=== PATIENT | male | born 1940 | race Caucasian/White ===

== ENCOUNTER 2017-09-15 23:06 | Emergency (ER) | payer MEDICARE ==
[~2017-09-15] VITALS: Ht 175.3 cm; Wt 75.8 kg
[~2017-09-15 23:06] MED LIST: ASPI81 PO; ATEN1TAB74 PO; AZIT250T74 PO; BENZ100 PO; CEFU1TAB43 PO; DM MED PO; GLIP5 PO; GUAI200UDC PO; LISI-587 PO; METO25 PO; PIOG15TA9 PO
[2017-09-15 23:07] VITALS: BP 216/88; PULSE 61; RESP 16; TEMP 97.9; O2SAT 95
[2017-09-15 23:10] VITALS: BP 216/88; PULSE 61; RESP 16; TEMP 97.9; O2SAT 95
[2017-09-15] MEDS ORDERED: SODIUM CHLORIDE 0.9% FLUSH 10 ML FLUSH IV FLUSH PRN (23:30)
[2017-09-15] MEDS ORDERED: cloNIDine HCL 0.1 MG TAB PO ONE (23:30)
--- NOTE | 2017-09-15 23:32 | PD ---
HPI Chief Complaint: elevated blood pressure Time Seen by Provider: 23:24 Travel History International Travel<30 days: No Contact w/Intl Traveler<30days: No Traveled to known affect area: No History of Present Illness HPI 77-year-old male with history of hypertensive, CAD, CABG, on several different antihypertensives, here for evaluation of elevated blood pressure. For last 3 days the patient's blood pressure readings have been high in the 200s over 100s range. He went to his primary care physician's office today Dr. Dr. Navas and was told to increase one of his blood pressure medications. The patient is otherwise asymptomatic. He denies headache or visual disturbances. No paresthesias or motor deficits. No chest pain or dyspnea. 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) Seizures: No Thyroid Disease: No Ulcer: Yes (GASTRIC) Past Surgical History Cardiac Surgery: Yes (VALVE REPAIR WITH BYPASS) Coronary Artery Bypass Graft: Yes (5 VESSEL: 2007) Eye Surgery: Yes (CATARACTS) Pacemaker: No Other Surgery: No Social History Alcohol Use: No Tobacco Use: No Substance Use: No Allergies-Medications (Allergen,Severity, Reaction): Coded Allergies: penicillin G (Unverified Allergy, Mild, PT DOES NOT KNOW, 09/15/17) Reported Meds & Prescriptions Reported Meds & Active Scripts Active Reported Glipizide 10 Mg Tab 20 Mg PO BIDAC Take 30 minutes before a meal Atenolol 100 Mg Tab 100 Mg PO BID Pioglitazone (Pioglitazone HCl) 15 Mg Tab 15 Mg PO DAILY Lisinopril-Hctz 20-25 Mg Tab 1 Tab PO BID Lisinopril-Hctz 20-25 Mg Tab 1 Tab PO DAILY Aspirin 81 Mg Chew 81 Mg CHEW DAILY Vitamin D3 (Cholecalciferol) 1,000 Unit Cap 1,000 Units PO DAILY [Dm Med] 1 Tab PO BID Review of Systems Except as stated in HPI: all other systems reviewed are Neg Physical Exam Narrative GENERAL: Well-developed, well-nourished, comfortable, no apparent distress. SKIN: Focused skin assessment warm/dry. HEAD: Atraumatic. Normocephalic. EYES: Pupils equal and round. No scleral icterus. No injection or drainage. ENT: Mucous membranes pink and moist. NECK: Trachea midline. No JVD. CARDIOVASCULAR: Regular rate and rhythm. Distal pulses brisk and equal bilaterally. RESPIRATORY: No accessory muscle use. Clear to auscultation. Breath sounds equal bilaterally. GASTROINTESTINAL: Abdomen soft, non-tender, nondistended. MUSCULOSKELETAL: No obvious deformities. No clubbing. No cyanosis. No edema. NEUROLOGICAL: Awake and alert. No obvious cranial nerve deficits. Motor grossly within normal limits. Normal speech. No focal deficits. PSYCHIATRIC: Appropriate mood and affect; insight and judgment normal. Data Data Last Documented VS Vital Signs Date Time Temp Pulse Resp B/P (MAP) Pulse Ox O2 Delivery O2 Flow Rate FiO2 09/16/17 00:31 52 16 147/67 (93) 95 Room Air 09/15/17 23:10 97.9 Orders Orders Complete Blood Count With Diff (09/15/17 23:30) Comprehensive Metabolic Panel (09/15/17 23:30) Iv Access Insert/Monitor (09/15/17 23:30) Ecg Monitoring (09/15/17 23:30) Oximetry (09/15/17 23:30) Sodium Chloride 0.9% Flush (Ns Flush) (09/15/17 23:30) Electrocardiogram (09/15/17 23:30) Clonidine (Catapres) (09/15/17 23:30) Labs Laboratory Tests Test 09/15/17 23:35 White Blood Count 6.2 TH/MM3 Red Blood Count 3.96 MIL/MM3 Hemoglobin 11.5 GM/DL Hematocrit 35.1 % Mean Corpuscular Volume 88.5 FL Mean Corpuscular Hemoglobin 29.0 PG Mean Corpuscular Hemoglobin Concent 32.8 % Red Cell Distribution Width 12.4 % Platelet Count 193 TH/MM3 Mean Platelet Volume 8.0 FL Neutrophils (%) (Auto) 50.6 % Lymphocytes (%) (Auto) 33.9 % Monocytes (%) (Auto) 9.2 % Eosinophils (%) (Auto) 5.7 % Basophils (%) (Auto) 0.6 % Neutrophils # (Auto) 3.1 TH/MM3 Lymphocytes # (Auto) 2.1 TH/MM3 Monocytes # (Auto) 0.6 TH/MM3 Eosinophils # (Auto) 0.4 TH/MM3 Basophils # (Auto) 0.0 TH/MM3 CBC Comment DIFF FINAL Differential Comment Blood Urea Nitrogen 26 MG/DL Creatinine 1.60 MG/DL Random Glucose 146 MG/DL Total Protein 7.6 GM/DL Albumin 3.5 GM/DL Calcium Level 9.1 MG/DL Alkaline Phosphatase 77 U/L Aspartate Amino Transf (AST/SGOT) 15 U/L Alanine Aminotransferase (ALT/SGPT) 25 U/L Total Bilirubin 0.5 MG/DL Sodium Level 138 MEQ/L Potassium Level 3.8 MEQ/L Chloride Level 102 MEQ/L Carbon Dioxide Level 28.1 MEQ/L Anion Gap 8 MEQ/L Estimat Glomerular Filtration Rate 42 ML/MIN MDM Medical Decision Making Medical Screen Exam Complete: Yes Emergency Medical Condition: Yes Medical Record Reviewed: Yes Interpretation(s) EKG: Sinus, rate 57, slight leftward axis, slight prolonged ND interval, some lateral T-wave flattening, essentially unchanged from prior. Differential Diagnosis Uncontrolled hypertension, hypertensive crisis unlikely, hypertensive urgency Narrative Course Initial vital signs show heart rate 61, blood pressure 216/88, pulse ox 97% on room air, oral temp of 97.9F. Patient was given a dose of clonidine, and repeat blood pressure is 147/67. CBC: WBC 6.2, hemoglobin 11.5, hematocrit 35.1, platelets 193. CMP is remarkable for BUN 26, creatinine 1.6, GFR 42 which is around his baseline, random glucose 146, otherwise unremarkable. Patient's initial blood pressure was 216/88. After a dose of clonidine 0.1 mg, his blood pressure improved to 147/67. The patient is not displaying any signs or symptoms of hypertensive crisis. In fact he is asymptomatic other than feeling a little fatigued. He is stable for discharge home with outpatient follow-up with his primary care physician in the next 1-2 days. He was informed on when to return to the emergency department. He verbalizes understanding and agreement with plan. Diagnosis Primary Impression: Elevated blood pressure reading Referrals: Primary Care Physician 2 days Additional Instructions: Follow-up with your primary care physician in the next 1-2 days. Continue your regular blood pressure medications. Return to the emergency department for worsening symptoms or any other concerns as discussed. Disposition: 01 DISCHARGE HOME Condition: Stable Checo Ch MD Sep 15, 2017 23:32
[2017-09-15 23:48] VITALS: RESP 16; O2SAT 97
[2017-09-15] MEDS ORDERED: ATEN100T PO (23:48)
[2017-09-15] MEDS ORDERED: ASPI-516 CHEW (23:48)
[2017-09-15] MEDS ORDERED: PIOG15TA5 PO (23:48)
[2017-09-15] MEDS ORDERED: LISI20TA3 PO ×2 (23:48)
[2017-09-15] MEDS ORDERED: CHOL10008 PO (23:48)
[2017-09-15] MEDS ORDERED: GLIP10TA6 PO (23:48)
[2017-09-15 23:50] LABS: AUTOMATED NEUTROPHIL # 3.1 TH/MM3 (1.8-7.7); BASOPHIL % 0.6 % (0.0-2.0); EOSINOPHIL # 0.4 TH/MM3 (0-0.4); EOSINOPHIL % 5.7 % (0.0-4.0); HEMATOCRIT 35.1 % (39.0-51.0); HEMO FLAGS DIFF FINAL; LYMPH % 33.9 % (9.0-44.0); LYMPHOCYTE # 2.1 TH/MM3 (1.0-4.8); MEAN CELL VOLUME 88.5 FL (80.0-100.0); MEAN CORPUSCULAR HGB CONC 32.8 % (32.0-36.0); MONO % 9.2 % (0.0-8.0); NEUT % 50.6 % (16.0-70.0); PLATELET COUNT 193 TH/MM3 (150-450); RED BLOOD COUNT 3.96 MIL/MM3 (4.50-5.90); RED CELL DISTRIBUTION WIDTH 12.4 % (11.6-17.2); WHITE BLOOD COUNT 6.2 TH/MM3 (4.0-11.0)
[2017-09-15 23:58] LABS: CHLORIDE 102 MEQ/L (98-107); POTASSIUM 3.8 MEQ/L (3.5-5.1); SODIUM (NA) 138 MEQ/L (136-145)
[2017-09-16 00:01] LABS: ANION GAP 8 MEQ/L (5-15); BICARBONATE 28.1 MEQ/L (21.0-32.0); BLOOD UREA NITROGEN 26 MG/DL (7-18)
[2017-09-16 00:04] LABS: ALT (GPT) 25 U/L (12-78); AST (GOT) 15 U/L (15-37)
[2017-09-16 00:05] VITALS: BP 195/76; PULSE 57; RESP 16; O2SAT 95
[2017-09-16 00:05] LABS: GLOMERULAR FILTRATION RATE 42 ML/MIN (>89)
[2017-09-16 00:06] LABS: TOTAL BILIRUBIN ADULT 0.5 MG/DL (0.2-1.0)
[2017-09-16 00:07] LABS: ALKALINE PHOSPHATASE 77 U/L (45-117)
[2017-09-16 00:31] VITALS: BP 147/67; PULSE 52; RESP 16; O2SAT 95
--- NOTE | 2017-09-16 16:24 | EKG ---
Date Performed: 09/15/2017 Time Performed: 23:41:27 PTAGE: 77 years EKG: SINUS BRADYCARDIA WITH SINUS ARRHYTHMIA WITH FIRST DEGREE AV BLOCK NONSPECIFIC T-WAVE ABNOR MALITY ABNORMAL ECG PREVIOUS TRACING : 12/30/2013 22.30 Compared to prior tracing no significant change DOCTOR: Hemalatha Ruby Interpretating Date/Time 09/16/2017 16:23:21
== END 2017-09-16 00:57 | disposition home or self-care (01) ==
LOC: PHED 23:06
DX: I10 Essential (primary) hypertension (principal); I25.10 Atherosclerotic heart disease of native coronary artery without angina pectoris; E11.9 Type 2 diabetes mellitus without complications; Z79.84 Long term (current) use of oral hypoglycemic drugs; Z95.1 Presence of aortocoronary bypass graft
CPT/HCPCS: 80053; 85025; 93005; 99284